=== PATIENT | female | born 1995 | race African-American/Black ===

== ENCOUNTER 2017-12-30 20:09 | Emergency (ER) | payer MEDICAID, SELFPAY ==
[2017-12-30 20:10] VITALS: BP 153/92; PULSE 117; RESP 16; TEMP 38; O2SAT 98; BMI 37.1
[2017-12-30 21:06] VITALS: RESP 24; O2SAT 100
[2017-12-30] MEDS: DiphenhydrAMINE 25 MG Capsule 50 MG PO (22:00)
[2017-12-30 22:50] LABS: Amphetamine Urine VISTA NEGATIVE (<1000 ng/mL); Barbiturate Urine VISTA NEGATIVE (< 200 ng/mL); Benzodiazepine Urine VISTA NEGATIVE (< 200 ng/mL); Cocaine Urine VISTA NEGATIVE (< 300 ng/mL); Ecstacy Urine VISTA NEGATIVE (< 500 ng/mL); Methadone Urine VISTA NEGATIVE (< 300 ng/mL); PCP Urine VISTA NEGATIVE (< 25 ng/mL); THC Urine VISTA POSITIVE (< 50 ng/mL); Vista UDS pH Range 5
--- NOTE | 2017-12-30 23:19 | ED.VISSUMM ---
- ER Visit Summary Date of Service: 12/30/17 Chief Complaint: I think I am going to History of Present Illness: The patient is a [address] Aragon. She reports that she rarely smokes marijuana. Her last use was approximately 2 months ago. She smoked a joint with friends mahad and took 5-6 hits. She reports approximately 30 minutes later she began feeling like she is on fire. She is concerned that this was laced with something. Physical Examination: Vitals: Stable. Afebrile. General: Well-nourished and well-developed. Head: Normocephalic atraumatic. Neck: Supple, no lymphadenopathy. No JVD. Nontender. Cardiovascular: Regular rate and rhythm. No murmurs. Respiratory: No respiratory distress. Clear to auscultation bilaterally. Abdominal: Soft, nontender, nondistended, normal bowel sounds. No guarding, rebound, or peritoneal signs. Back: Nontender. Extremities: Nontender, no edema. Skin: Normal color, no rash. Neurologic: Alert and oriented ?3. Cranial nerves II through XII are intact. Normal strength and sensation. Psych: Normal affect. Test Results: Tox screen only shows marijuana. Emergency Department Course and Treatment: Patient was treated with Benadryl p.o. and is resting comfortably at this point. Treatment Plan: Patient will be discharged with instructions to refrain from using marijuana. Follow-up with Dr. Aragon in 1-2 days if not improving. Return to the emergency department for any worsening symptoms. Disposition: To home in improved and stable condition. Impression: 1. Marijuana intoxication. This note was generated with [employer] software. It may contain incorrect words, spelling, and punctuation that were not noted in review of the chart prior to signing ED Disposition - Plan for ED Patient: Disposition: Home or Assisted Living Chief Complaint: Subst Abuse Instructions: ED Drug Abuse General Referrals: Justyn Yip MD [Primary Care Provider] - As Needed
[2017-12-30 23:34] VITALS: BP 144/68; PULSE 72; RESP 14; O2SAT 100
== END 2017-12-30 23:35 | disposition home or self-care (01) ==
PROVIDERS: Emergency Provider Emergency Medicine; Family Provider Family Medicine; PCP Family Medicine
DX: F12.929 Cannabis use, unspecified with intoxication, unspecified (principal)
CPT/HCPCS: 80307; 99284

== ENCOUNTER → 2018-11-12 16:33 | Outpatient (CLI) | payer SELFPAY ==
[2018-11-12 17:40] LABS: Basophil# 0.03 X10^3/uL; Basophil% 0.4 % (0-1); Eosinophil# 0.09 X10^3/uL; Eosinophils% 1.1 % (0-5); Hematocrit 32.2 % (37-47); Hemoglobin 9.1 g/dl (12.0-15.0); Lymphocyte % 30.7 % (19-41); Mean Corp Hgb Conc 28.3 g/gl (32-36); Mean Corpuscular Hgb 20.4 pg (27.0-32.0); Mean Platelet Vol. 11.1 fl (6.2-12.0); Monocyte# 0.49 X10^3/uL; Neutrophil # 5.04 X10^3/uL (2.7-7.7); Neutrophil % 61.8 % (47-70); Platelet Count 327 K/mm3 (150-450); RBC Distribution Width CV 16.9 % (11.6-14.6); RBC Distribution Width SD 43.6 fl (35.1-43.9); Red Blood Count 4.47 M/mm3 (4.2-5.4); White Blood Count 8.2 K/mm3 (4.4-11.0)
[2018-11-12 17:42] LABS: Differential Indicated SCAN CRITERIA MET; POSITIVE COUNT NO; POSITIVE DIFFERENTIAL NO; POSITIVE MORPHOLOGY YES
[2018-11-12 17:57] LABS: Iron 20 ug/dL (50-170)
[2018-11-12 18:26] LABS: Anisocytosis 1+; Hypochromasia 2+; Ovalocyte 1+; Platelet Estimate ADEQUATE (ADEQ)
== END ==
LOC: MFPLAB 16:35
PROVIDERS: Family Provider Family Medicine; PCP Family Medicine; Referring Provider Family Medicine; Visit Provider Family Medicine
DX: D53.9 Nutritional anemia, unspecified (principal)
CPT/HCPCS: 36415; 83540; 85025

== ENCOUNTER 2019-03-27 16:41 | Emergency (ER) | payer SELFPAY ==
[2019-03-27 16:43] VITALS: BP 109/55; PULSE 67; RESP 16; TEMP 36.9; O2SAT 97; BMI 39.2
--- NOTE | 2019-03-27 17:42 | ED.VISSUMM ---
- ER Visit Summary Date of Service: 03/27/19 Chief Complaint: [Concern for STD ] History of Present Illness: The patient is a 23 F [presents with a white discharge for 2 days. Patient states that she has had chlamydia before and it was similar. Patient was sexually active recently with somebody and did not use protection and is concerned she may have gotten another STD. Patient denies any vaginal lesions. She denies any dysuria. She denies any burning or itching. She denies any foul odor from the discharge. Denies any fevers or abdominal pain.] Physical Examination: [HEENT-PERRLA, EOMI. Cranial nerves II through XII grossly intact. TMs clear. Mucous membranes moist. No adenopathy. Cardiovascular-regular rate and rhythm without murmur or ectopy Lungs-clear to auscultation, chest wall stable without crepitus or subcu emphysema Abdomen-normoactive bowel sounds, soft, nontender, no rebound or rigidity, no peritoneal signs. Extremities-intact ?4, normal range of motion, normal pulses, atraumatic] Test Results: [Urine was sent for GC and chlamydia. Results will be pending.] Emergency Department Course and Treatment: [Was medicated with Rocephin and Zithromax] Treatment Plan: [Follow-up with Dr. Loly Barkley who is her [employer]TELLIGENCE DEVELOPER to receive her results.] Disposition: [Discharged home stable condition.] Impression: [Vaginitis] This note was generated with [employer] dictation software. It may contain incorrect words, spelling, and punctuation that were not noted in review of the chart prior to signing ED Disposition - Plan for ED Patient: Referrals: Justyn Yip MD [Primary Care Provider] -
--- NOTE | 2019-03-27 17:44 | ED.DEP ---
ED Disposition - Plan for ED Patient: Instructions: CHLAMYDIA, Female Referrals: Justyn Yip MD [Primary Care Provider] - Loly Barkley MD [STAFF PHYSICIAN] - 3-5 Days
[2019-03-27] MEDS: Azithromycin 250 MG Tablet 1000 MG PO (18:51)
[2019-03-27] MEDS: Ceftriaxone 500 MG Vial 250 MG IM (18:51)
[2019-03-27 19:06] VITALS: BP 110/60; PULSE 72; RESP 16; O2SAT 98
--- NOTE | 2019-03-27 19:06 | ED.RN ---
OBSERVED SHOT TIME FOR 20 MIN NO REACTION NOTED BY THIS RN, PT WAS D/C.
[2019-03-27 19:07] VITALS: PULSE 79; RESP 16; O2SAT 98
--- NOTE | 2019-03-27 19:08 | ED.RN ---
no noted reaction
[2019-03-27 19:46] LABS: Chlamydia Trachomatis by PCR Negative (Negative); Neisserai gonorrhoeae by PCR Negative (Negative); Probe Check PASS; Sample Adequacy Control PASS; Specimen Processing Control PASS
== END 2019-03-27 19:09 | disposition home or self-care (01) ==
LOC: ED 17:48
PROVIDERS: Emergency Provider Emergency Medicine; Family Provider Family Medicine; PCP Family Medicine
DX: N76.0 Acute vaginitis (principal); Z86.19 Personal history of other infectious and parasitic diseases
CPT/HCPCS: 87491; 87591; 96372; 99283

== ENCOUNTER → 2019-06-15 08:52 | Outpatient (CLI) | payer SELFPAY ==
[2019-06-15 08:21] VITALS: BMI 39.2
[2019-06-15 09:27] LABS: Absolute Lymphocyte Count 2.22 X10^3/uL (0.83-4.51); Absolute Neutrophil Count 5.9 X10^3/uL (2.0-7.7); Basophil# 0.03 X10^3/uL; Basophil% 0.3 % (0-1); Eosinophil# 0.13 X10^3/uL; Eosinophils% 1.5 % (0-5); Hematocrit 36.1 % (37-47); Hemoglobin 10.6 g/dL (12.0-15.0); Lymphocyte # 2.22 X10^3/ul (4.0); Lymphocyte % 25.2 % (19-41); Mean Corp Hgb Conc 29.4 g/dL (32-36); Mean Corpuscular Hgb 22.8 pg (27.0-32.0); Mean Corpuscular Volume 77.8 fL (81-99); Mean Platelet Vol. 10.6 fl (6.2-12.0); Monocyte# 0.47 X10^3/uL; Monocyte% 5.3 % (0-10); NRBC Flagged by Analyzer 0 % (0-5); Neutrophil # 5.93 X10^3/uL (2.7-7.7); Neutrophil % 67.4 % (47-70); POSITIVE MORPHOLOGY YES; Platelet Count 291 K/mm3 (150-450); RBC Distribution Width CV 17.3 % (11.6-14.6); RBC Distribution Width SD 48.8 fl (35.1-43.9); Red Blood Count 4.64 M/mm3 (4.2-5.4); White Blood Count 8.8 K/mm3 (4.4-11.0)
[2019-06-15 09:30] LABS: Differential Indicated SCAN CRITERIA MET
[2019-06-15 09:51] LABS: Prolactin 11.2 ng/mL; Thyroid Stim Hormone (TSH) 1.15 uIU/mL (0.358-3.74)
== END ==
LOC: PAVLAB 08:53
PROVIDERS: Family Provider Family Medicine; PCP Family Medicine; Referring Provider Obstetrics & Gynecology; Visit Provider Obstetrics & Gynecology
DX: N92.0 Excessive and frequent menstruation with regular cycle (principal); N97.9 Female infertility, unspecified
CPT/HCPCS: 36415; 84146; 84443; 85025

== ENCOUNTER → 2019-06-17 11:29 | Outpatient (CLI) | payer SELFPAY ==
[2019-06-15 08:21] VITALS: BMI 39.2
[2019-06-17 13:06] LABS: Iron 153 ug/dL (50-170); Iron Binding Capacity,Total 423 ug/dL (250-450)
[2019-06-20 16:08] LABS: Hemoglobin Fraction A 98.2 % (96.4-98.8); Hemoglobin Fraction A2 1.8 % (1.8-3.2); Hemoglobin Fraction C 0 % (0.0); Hemoglobin Fraction F 0 % (0.0-2.0); Hemoglobin Fraction S 0 % (0.0); Hemoglobin Solubility,Panel Negative (Negative)
[2019-06-21 16:25] LABS: Transferrin 330 mg/dL (200-370)
== END ==
LOC: PAVLAB 11:31
PROVIDERS: Family Provider Family Medicine; PCP Family Medicine; Referring Provider Obstetrics & Gynecology; Visit Provider Obstetrics & Gynecology
DX: D64.9 Anemia, unspecified (principal)
CPT/HCPCS: 36415; 83021; 83540; 83550; 84466; 85660

== ENCOUNTER → 2019-06-27 08:09 | Outpatient (CLI) | payer SELFPAY ==
[2019-06-15 08:21] VITALS: BMI 39.2
--- NOTE | 2019-06-27 08:11 | US_ITS ---
STUDY: ULTRASOUND OF THE FEMALE PELVIS - COMPLETE REASON FOR EXAM: Female, 24 years old. Menorrhagia LMP: 06/05/2019 TECHNIQUE: Transabdominal and Transvaginal TECHNICAL QUALITY: Adequate. COMPARISON: None. FINDINGS: The uterus is anteverted and is in a midline position. The uterus measures 8.7 x 6.6 x 4.6 cm. Normal uterine cervix. The endometrium measures 9 mm in thickness, and is fluid distended. There is no demonstrated endometrial mass. There is no demonstrated myometrial mass. I.U.D. - The patient does not have an I.U.D. The right ovary is visualized. The right ovary measures 2.9 x 2.2 x 2.7 cm. There is no right ovarian cyst or ovarian mass. There is no visualized right adnexal mass or complex lesion. There is normal arterial and normal venous vascularity. The left ovary is visualized. The left ovary measures 2.7 x 2.5 x 1.5 cm. There is no left ovarian cyst or ovarian mass. There is no visualized left adnexal mass or complex lesion. There is normal arterial and normal venous vascularity. There is no fluid in the cul-de-sac. The pre void volume of the bladder was ml. The post void volume of the bladder was ml. Polycystic ovary disease: No. US/Transvaginal Non- IMPRESSION: Some endometrial fluid. Electronically Signed: Del Rea MD at 16:07 EDT Tel , Service support ,
--- NOTE | 2019-06-27 08:11 | US_ITS ---
STUDY: ULTRASOUND OF THE FEMALE PELVIS - COMPLETE REASON FOR EXAM: Female, 24 years old. Menorrhagia LMP: 06/05/2019 TECHNIQUE: Transabdominal and Transvaginal TECHNICAL QUALITY: Adequate. COMPARISON: None. FINDINGS: The uterus is anteverted and is in a midline position. The uterus measures 8.7 x 6.6 x 4.6 cm. Normal uterine cervix. The endometrium measures 9 mm in thickness, and is fluid distended. There is no demonstrated endometrial mass. There is no demonstrated myometrial mass. I.U.D. - The patient does not have an I.U.D. The right ovary is visualized. The right ovary measures 2.9 x 2.2 x 2.7 cm. There is no right ovarian cyst or ovarian mass. There is no visualized right adnexal mass or complex lesion. There is normal arterial and normal venous vascularity. The left ovary is visualized. The left ovary measures 2.7 x 2.5 x 1.5 cm. There is no left ovarian cyst or ovarian mass. There is no visualized left adnexal mass or complex lesion. There is normal arterial and normal venous vascularity. There is no fluid in the cul-de-sac. The pre void volume of the bladder was ml. The post void volume of the bladder was ml. Polycystic ovary disease: No. US/Pelvic (Non ) IMPRESSION: Some endometrial fluid. Electronically Signed: Del Rea MD at 16:07 EDT Tel , Service support ,
== END ==
PROVIDERS: Family Provider Family Medicine; PCP Family Medicine; Referring Provider Nurse Practitioner Women's Health; Visit Provider Nurse Practitioner Women's Health
DX: N92.0 Excessive and frequent menstruation with regular cycle (principal); N97.9 Female infertility, unspecified
CPT/HCPCS: 76830; 76856

== ENCOUNTER 2022-04-30 20:11 | Emergency (ER) | payer SELFPAY ==
[2022-04-30 20:12] VITALS: BP 141/89; PULSE 84; RESP 14; TEMP 36.2; O2SAT 98
--- NOTE | 2022-04-30 20:34 | ED.VIS.FEGU ---
HPI HPI - Female History of Present Illness Chief Complaint: Female C/O Informant: patient Narrative Narrative: Patient presents secondary to concern for herpes. She states that she was diagnosed with bacterial vaginosis 2 days ago and is currently on Flagyl. She noted some bumps in her perineum that are painful and she is concerned she may have herpes. She has no known history of herpes. [facility] Medical History (Updated 04/30/22 @ 20:[address] Dolores Zhou MD) Bacterial vaginosis Home Medications acyclovir 400 mg tablet 400 mg PO TID #30 tabs 04/30/22 [Rx Last Taken Unknown] metronidazole 500 mg tablet 500 mg PO BID 04/30/22 [History Last Taken Unknown] Allergy/AdvReac Type Severity Reaction Status Date / Time No Known Allergies Allergy Verified 04/30/22 20:12 Surgical History delivery delivered Social History Smoking Status: Never smoker alcohol intake: current details: social substance use type: does not use caffeine: Yes what type of physical activity do you participate in: walking seatbelt use: always do you feel safe at home: Yes additional social history: Single- works at [employer] [facility] [facility] ED Constitutional Constitutional ED: Denies chills or fever(s) Eyes Eyes: Denies change in vision or discharge from eye(s) ENT ENT ED: Denies discharge from eye(s), rhinorrhea or sore throat Cardiovascular Cardiovascular: Denies chest pain or palpitations Respiratory/Chest Respiratory/Chest: Denies cough or dyspnea Gastrointestinal Gastrointestinal: Denies abdominal pain, diarrhea, nausea or vomiting Genitourinary Genitourinary ED: Reports other Details: Perineal lesions ; Denies difficulty urinating or dysuria Musculoskeletal Musculoskeletal: Denies back pain or extremity pain Integumentary Denies Abrasions or rash Neurologic Neurologic: Denies headache(s) or weakness Psychiatric Psychiatric: Denies anxiety or depression Allergic/Immunologic Allergic/Immunologic ED: Denies lip swelling or urticaria EXAM Physical Exam Const Vital Signs: 04/30/22 20:12 Temperature 97.2 F L Temperature Source Temporal Pulse Rate 84 Respiratory Rate 14 Blood Pressure 141/89 H Blood Pressure Mean 106 Pulse Ox 98 Oxygen Delivery Method Room Air Positive well nourished and well developed General Appearance ED: well developed HEENT Reports normocephalic and head/scalp atraumatic Eyes PERRL and EOMs intact bilaterally Neck supple Chest Wall inspection of chest normal and palpation of chest normal Resp normal respiratory effort and clear to auscultation bilaterally Cardio regular rate and regular rhythm GI normal to inspection, nondistended, normoactive bowel sounds Palpation: soft Narrative: 2 small ulcerations at the posterior portion of the perineum. No active blisters noted. Ulcerations were swabbed for testing. Extremity normal to inspection Neuro oriented x3 and no sensory deficits noted Sensorium / Orientation: alert Motor Exam: strength 5/5 throughout Psych mental status grossly normal Skin no rashes or lesions noted MDM [facility] Treatment and Re-Evaluation Narrative: Patient does have 2 small ulcerations noted on exam. I am not convinced that this is secondary to herpes, but will be sent for testing. I will send prescription for acyclovir to the patient's pharmacy. She will receive a call tomorrow with the culture result. If the test is positive she will spanish moss picker the prescription. If her herpes test is negative she does not need to spanish moss picker the prescription. She will be referred to Dr. Allen, on-call for [employer]ODUCTION OPER[employer]. Discharge Plan Triage Chief Complaint: Female C/O ED Provider: Dolores Zhou Dx/Rx/DC Orders Clinical Impression: Skin ulcer of perineum Prescriptions: New acyclovir 400 mg tablet 400 mg PO TID Qty: 30 0RF No Action metronidazole 500 mg tablet 500 mg PO BID Label Comments: Take 1 tablet by mouth twice daily for 7 days. Primary Care Provider: Justyn Yip Referrals: Justyn Yip MD [Primary Care Provider] - Lakeisha Fisher MD [Med Staff - Active Staff] - 1-2 Weeks Activity Restrictions/Additional Instructions: As discussed, there are 2 small ulcerations noted. I am not convinced that this is consistent with herpes. Your culture will be sent and you will be called with the results. If your herpes test is positive you can spanish moss picker the prescription from the pharmacy. If your test is negative you do not need to spanish moss picker the prescription. Disposition Disposition: Home, Self Care
== END 2022-04-30 20:49 | disposition home or self-care (01) ==
PROVIDERS: Emergency Provider Emergency Medicine; PCP Family Medicine; Visit Provider Emergency Medicine
DX: L98.499 Non-pressure chronic ulcer of skin of other sites with unspecified severity (principal)
CPT/HCPCS: 87255; 99282

== ENCOUNTER 2023-09-16 13:54 | Emergency (ER) | payer MEDICAID, SELFPAY ==
[2023-09-16 13:56] VITALS: BP 135/70; PULSE 85; RESP 14; TEMP 36.8; O2SAT 98; BMI 40.3
--- NOTE | 2023-09-16 17:07 | EDS_ITS ---
HPI History of Present Illness Chief Complaint: Lower Extremity Injury Detail of Chief Complaint: Mid left calf pain Informant: patient Onset/Context/Timing Onset: Days Context: Sudden Onset Timing: Continuous Quality of Pain: Dull and Aching Location: Inferior portion of the left gastrocnemius region. Current Severity: Mild Maximum Severity: Severe Worsened by: Palpation and plantar flexion of the foot against resistance Relieved by: Rest Associated Symptoms Associated Symptoms: Negative for Parasthesia, Weakness or Loss of Funtion Narrative Narrative: Patient is a 28-year-old female who is approximately 10 weeks gestation who presents to the emergency room because her mother and boss believe she has a blood clot. She denies chest pain or shortness of breath. She has no history of DVT or PE. She does not have history of trauma to the left leg. There is no family history of blood clots. Tetanus Immunization: 5-10 years Prior similar symptoms: No Recent Illness/Hospitalization: No PFSH PFS Medical History Bacterial vaginosis Home Medications acyclovir 400 mg tablet 400 mg PO TID #30 tabs 04/30/22 [Rx Last Taken Unknown] metronidazole 500 mg tablet 500 mg PO BID 04/30/22 [History Last Taken Unknown] Allergy/AdvReac Type Severity Reaction Status Date / Time No Known Allergies Allergy Verified 09/16/23 13:55 Surgical History delivery delivered Social History Smoking Status: Never smoker alcohol intake: current details: social substance use type: does not use caffeine: Yes what type of physical activity do you participate in: walking seatbelt use: always do you feel safe at home: Yes additional social history: Single- works at [employer] ED Constitutional Constitutional ED: Denies chills, fever(s), subjective, sweats or weight loss Cardiovascular Cardiovascular: Denies chest pain or palpitations Respiratory/Chest Respiratory/Chest: Denies cough, dyspnea or dyspnea on exertion Gastrointestinal Gastrointestinal: Denies nausea or vomiting Integumentary Denies Abrasions or rash Neurologic Neurologic: Denies paresthesias or weakness Hematologic/Lymphatic Hematologic/Lymphatic: Denies easy bleeding or easy bruising EXAM Physical Exam Const Vital Signs: 09/16/23 13:56 Temperature 98.2 F Temperature Source Temporal Pulse Rate 85 Respiratory Rate 14 Blood Pressure 135/70 H Blood Pressure Mean 91 Pulse Ox 98 Oxygen Delivery Method Room Air Positive well nourished and well developed General Appearance ED: well developed and NAD HEENT Reports moist mucous membranes normocephalic and atraumatic Chest Wall inspection of chest normal and palpation of chest normal Resp normal respiratory effort, no retractions and clear to auscultation bilaterally Cardio regular rate, regular rhythm, S1 normal heart sound, S2 normal heart sound and no murmurs Extremity normal to inspection and full ROM Extremity Narrative: There is a small area of tenderness. There may be a small hematoma in the area. There is no palpable cords. There is no leg vein distention. There is no tenderness along the distribution deep venous system. The left lower extremity is not swollen, discolored. There is no asymmetry. Plantarflexion against resistance causes increased pain. There is pain to palpation over the small nodular area. This is superficial. Findings are not consistent with a superficial phlebitis. Neuro oriented x3, CN's II-XII intact bilaterally, moves all extremities and no sensory deficits noted Sensorium / Orientation: alert Motor Exam: strength 5/5 throughout Psych mental status grossly normal Skin no wounds Lesions: no lesions Rashes: no rashes MDM MDM MDM Narrative Medical decision making narrative: Wells score for DVT is -2. Patient's findings are consistent with a musc uloskeletal injury. There is no concern for DVT. Patient was told this. In my opinion there is no need for venous duplex study or laboratory studies i.e. D- dimer. Patient was discharged home with instructions to apply ice and Tylenol since she is in her first trimester Discharge Plan Triage Chief Complaint: Lower Extremity Injury ED Provider: Myles Scott Dx/Rx/DC Orders Clinical Impression: Gastrocnemius strain, left Instructions: ED Muscle Strain, Extremity Prescriptions: No Action metronidazole 500 mg tablet 500 mg PO BID Patient Comments: Take 1 tablet by mouth twice daily for 7 days. acyclovir 400 mg tablet 400 mg PO TID Qty: 30 0RF Primary Care Provider: Justyn Yip Referrals: Justyn Yip MD [Primary Care Provider] - 1 Week if not improving Activity Restrictions/Additional Instructions: 1. Apply ice to the left calf 6-10 times a day 2. Take Tylenol for pain Disposition Disposition: Home, Self Care
== END 2023-09-16 17:32 | disposition home or self-care (01) ==
LOC: ED 17:21
PROVIDERS: Emergency Provider Emergency Medicine; Visit Provider Emergency Medicine
DX: O9A.211 Injury, poisoning and certain other consequences of external causes complicating pregnancy, first trimester (principal); S86.112A Strain of other muscle(s) and tendon(s) of posterior muscle group at lower leg level, left leg, initial encounter; X58.XXXA Exposure to other specified factors, initial encounter; Z3A.10 10 weeks gestation of pregnancy
CPT/HCPCS: 99282

== ENCOUNTER 2024-03-15 23:12 | Outpatient (CLI) | payer MEDICAID, SELFPAY ==
[2024-03-15 23:39] VITALS: PULSE 73; RESP 16; TEMP 36.5; O2SAT 93; O2SAT 97
[2024-03-15 23:40] VITALS: BMI 45.3
[2024-03-15 23:44] VITALS: BP 138/68; PULSE 90
[2024-03-15 23:46] VITALS: PULSE 83; O2SAT 98
[2024-03-15 23:47] VITALS: PULSE 84; O2SAT 86
[2024-03-15 23:51] VITALS: PULSE 85; O2SAT 99
[2024-03-15 23:56] VITALS: PULSE 76; O2SAT 98
[2024-03-16 00:01] VITALS: PULSE 83; O2SAT 97
[2024-03-16 00:06] VITALS: PULSE 83; O2SAT 99
[2024-03-16 00:11] VITALS: PULSE 86; O2SAT 100
[2024-03-16 00:16] VITALS: PULSE 86; O2SAT 99
[2024-03-16 00:21] VITALS: PULSE 82; O2SAT 98
--- NOTE | 2024-03-18 09:24 | OB.TRI.HP_ITS ---
HPI - General General Date of Admission: 03/15/24 Date of Service: 03/15/24 Chief Complaint: decreased FM HPI Narrative MELANIE BLANCA, is a 28 F who presents c/o decreased FM Maternal Data Information Final NAM: 04/12/24 Gestational age: 36 0/7 PFSH PFS Medical History Bacterial vaginosis Home Medications ?Medication ?Instructions ?Recorded ?Last Taken ?Type acyclovir 400 mg tablet 400 mg PO TID #30 tabs 04/30/22 Unknown Rx metronidazole 500 mg tablet 500 mg PO BID 04/30/22 Unknown History ferrous sulfate 325 mg (65 mg 325 mg PO DAILY 03/15/24 Unknown History iron) tablet (FeroSul) vit no.95-ferrous 1 tab PO DAILY 03/15/24 Unknown History fumarate 28 mg-folic acid 800 mcg tablet () Allergy/AdvReac Type Severity Reaction Status Date / Time No Known Allergies Allergy Verified 03/15/24 23:41 Surgical History delivery delivered Social History Smoking Status: Never smoker alcohol intake: current details: social substance use type: does not use caffeine: Yes what type of physical activity do you participate in: walking seatbelt use: always do you feel safe at home: Yes additional social history: Single- works at [employer] [facility] History 1 Elective abortions Hx Para 1 Spontaneous abortions Hx # Term Pregnancies Ectopic pregnancies Hx # Pregnancies Multiple births # of living children Past Pregnancies Del. Date Name GA/Weeks Outcome Route Bth Weight Gen Labor Lgth Anesthesia Del Locatn Provider FOB Unknown Xandrea live - full term Female [facility] Filippo Delivery Date: Last Updated by: Emily Simeon MD NRFHTs NST FHR Rate Baby A Baseline: 120 Variability:: Moderate Accelerations:: 15 x 15 Decelerations:: None NST Reactive:: Yes FHR Category:: Category I Uterine Activity:: no regular ctxs Assessment & Plan (1) Decreased movement affecting management of mother, antepartum: PLAN: NST reactive. F/u as scheduled or prn. (2) 36 weeks gestation of :
== END 2024-03-16 00:34 | disposition home or self-care (01) ==
LOC: WPOUT 23:31 → WP 23:32
PROVIDERS: Visit Provider Advanced Practice Midwife
DX: O36.8130 Decreased fetal movements, third trimester, not applicable or unspecified (principal); Z3A.36 36 weeks gestation of pregnancy
CPT/HCPCS: 59025; 59050; 99221; G0378

== ENCOUNTER 2024-04-07 09:54 | Inpatient (IN) | payer MEDICAID, SELFPAY ==
[2024-04-07] VITALS (14 sets, daily range): BP systolic 122–156; BP diastolic 68–95; PULSE 68–92; RESP 16–18; TEMP 36.1–36.9; O2SAT 94–99; BMI 47.8
[2024-04-07] MEDS: Lactated Ringers 1,000 ML 999 ML IV (10:30)
[2024-04-07 10:51] LABS: Absolute Lymphocyte Count 1.22 X10^3/uL (0.83-4.51); Absolute Neutrophil Count 6.5 X10^3/uL (2.0-7.7); Basophil# 0.01 X10^3/uL; Basophil% 0.1 % (0-1); Eosinophil# 0.06 X10^3/uL; Eosinophils% 0.7 % (0-5); Hematocrit 34.2 % (37-47); Hemoglobin 10.9 g/dL (12.0-15.0); Lymphocyte # 1.22 X10^3/ul (0.83-4.51); Lymphocyte % 14.5 % (19-41); Mean Corp Hgb Conc 31.9 g/dL (32-36); Mean Corpuscular Hgb 25.8 pg (27.0-32.0); Mean Corpuscular Volume 80.9 fL (81-99); Mean Platelet Vol. 12.7 fl (6.2-12.0); Monocyte# 0.58 X10^3/uL; Monocyte% 6.9 % (0-10); NRBC Flagged by Analyzer 0 % (0-5); Neutrophil # 6.49 X10^3/uL (2.7-7.7); Neutrophil % 77.2 % (47-70); Platelet Count 138 K/mm3 (150-450); RBC Distribution Width SD 52.8 fl (35.1-43.9); Red Blood Count 4.23 M/mm3 (4.2-5.4); White Blood Count 8.4 K/mm3 (4.4-11.0)
[2024-04-07] MEDS: Acetaminophen 500 MG Tablet 1000 MG PO ×2 (10:57→19:51)
[2024-04-07 11:29] LABS: Syphilis Antibodies Non-reactive
[2024-04-07] MEDS: Lactated Ringers 1,000 ML 150 ML IV (11:34)
[2024-04-07] MEDS: Sodium Citrate/Citric Acid 30 ML UDC PO (11:35)
--- NOTE | 2024-04-07 11:50 | PCM.HP.BLA ---
History and Physical Date of Admission: 04/07/24 PROBLEM: repeat section DIAGNOSIS: repeat section PAST SURGICAL HISTORY: PAST SURGICAL HISTORY PAST SURGICAL HISTORY Procedure Laterality Date ? DELIVERY ONLY 03/24/16 , low transverse PAST MEDICAL HISTORY: PAST MEDICAL HISTORY PAST MEDICAL HISTORY Diagnosis Date ? Antepartum anemia complicating in second trimester 01/04/2016 ? Asthma last used inhaler 2016 ? Chlamydia 2018 ? Group B Streptococcus urinary tract infection affecting , antepartum 12/10/2015 ? Herpes, genital 2021 Type 1 ? HSV infection 08/31/2023 ? Trichomonal infection 08/21/2015 ? Trichomoniasis 09/11/2015 Was checked on 12/05/15 and still had infection. Was re-treated. Dolores Vail, January 04, 2016 Retreated today. third time this . Loly Barkley MD ? UTI (urinary tract infection) in , antepartum 09/02/2023 1st trimester Repeat culture done ? Vaginal odor 08/31/2023 Reports odor and discharge. BV/yeast cultures obtained. SUBJECTIVE: doing well SOCIAL HISTORY: SOCIAL HISTORYExpand by Default Social History Tobacco Use ? Smoking status: Never ? Smokeless tobacco: Never Vaping Use ? Vaping Use: Former ? Quit date: 08/11/2023 ? Substances: Nicotine ? Devices: Disposable Substance Use Topics ? Alcohol use: Not Currently Comment: occasional ? Drug use: No Allergies: No Known Allergies Current Outpatient Medications on File Prior to Visit Medication Sig ? acyclovir (ZOVIRAX) 400 mg tablet Take 1 tablet by mouth three times a day. ? ferrous sulfate 325 mg (65 mg iron) tablet Take 1 tablet by mouth every other day. ? VIT [id number] AC ORAL Take by mouth. ? valACYclovir (VALTREX) 1 gram Take 1 tablet by mouth once daily. No current facility-administered medications on file prior to visit. OBJECTIVE: VITALS: BP 110/88 Wt 131.8 kg (290 lb 9.6 oz) LMP 07/07/2023 (Exact Date) BMI 46.90 kg/m? HEENT: Normocephalic, atraumatic, Mucus membranes moist without lesions. NECK: Soft and Supple. No adenopathy , thyromegaly or bruits. SKIN: No lesions. CHEST: No increased respiratory effort. HEART: Regular rate. BACK: Nontender with no CVA tenderness. ABDOMEN: Soft, non-tender, non-distended, no masses, no hepatosplenomegaly. LOWER EXTREMITIES: There was no pitting edema, no palpable cords and no skin changes. ASSESSMENT: pre op PLAN: 1) Discussed r/b/a repeat section. The rationale for the proposed surgery was discussed in addition to risks, benefits, and alternatives. General pre- and post-operative care was reviewed. Questions were answered. After discussion, the patient indicated a desire to proceed with the planned surgery. Chanel Gonzalez, DO Assessment & Plan Assessment/Plan (1) 39 weeks gestation of : (2) Obesity affecting : (3) History of section: (4) Anemia affecting : (5) History of herpes genitalis: (6) History of trichomonal vaginitis: (7) Asthma:
[2024-04-07] MEDS: Cefazolin 2 GM in 0.9% Normal Saline (100mL Bag) 100 ML IV (11:58)
--- NOTE | 2024-04-07 13:22 | PCM.OPRPT ---
Problems Associated Problem List Diagnoses (1) Asthma: (2) History of trichomonal vaginitis: (3) History of herpes genitalis: (4) Anemia affecting : (5) History of section: (6) 39 weeks gestation of : (7) Obesity affecting : Report of Operation Date of Procedure: 04/07/24 Pre-Operative Diagnosis: 39 week gestation, history section, obesity affecting , accelerated growth Surgery/Procedure Performed:: PLTCS via pfannenstiel incision Description of Surgical Findings:: VMI in cephalic presentation with clear fluid. Weight 10+ pounds and apgars 8, 9. Normal appearing uterus and adnexa. Omental adhesions noted to left fundus of uterus. Omental adhesions to peritoneum along patient's left side. Rectus muscles adhered in the midline and adhered to peritoneum. Fascia dense and adhered to rectus muscles. Surgeon: Chanel Gonzalez qualitative field project manager: Arleth MENDOZA Type of Anesthesia: Spinal Special Medications: None Specimen's removed: Placenta Drains: [place] Estimated Blood Loss (mL): 900 Fluids Replaced: 1000 mL Description of Procedure: The patient was taken to the operating room where spinal anesthesia was found to be adequate. She was prepped and draped in the dorsal supine position with leftward tilt. A Pfannenstiel skin incision was made using a scalpel and this was carried down to the underlying layer of fascia. The fascia was incised in midline. The fascial incision was extended laterally using Cleary scissors. The fascia was tented off the rectus and dissected from the rectus muscles in both cephalad and caudad direction using sharp dissection. The rectus muscles were adhered in the midline. The rectus muscles were elevated using Nola clamps and a scalpel was used to incise in the midline to separate the rectus muscles. The remaining rectus muscles were in the midline using blunt dissection. The peritoneum was then elevated using Nola clamps and entered sharply with good visualization of the bladder. The peritoneal incision was extended bluntly with lateral traction. A bladder blade was inserted. A low transverse incision was made on the uterus with a scalpel. The uterine incision was extended with cephalad and caudad traction. Membranes were ruptured for clear fluid upon entry. The head was delivered in a flexed position, followed by the shoulders and body of the infant without any traction, force, or delay. The cord was clamped and cut after slight delay and the vigorous male infant was handed off to the waiting nursery staff. Placenta was removed with manual extraction. The uterus was cleared cleared of all clot and debris. The uterus was exteriorized. The hysterotomy was closed with 1-0 Vicryl in a running locked fashion. Several additional [id number]-[id number] sutures were placed for hemostasis. An omental adhesion was noted to the left fundus of the uterus. A Nola clamp was placed and the Bovie cautery was used to transect the omental adhesion. A 3-0 Vicryl was used to tie off the omental adhesion once removed from the fundus of the uterus. The Nola clamp was removed and hemostasis was noted. Bilateral adnexa were normal-appearing. The uterus was placed back into the abdomen. Gutters were cleared of all clot. The hysterotomy was inspected and noted to be hemostatic. Kasia was placed over the hysterotomy. The peritoneum was unable to be reapproximated due to omental adhesions to the peritoneum, and the peritoneum was unable to be brought together without it tearing. A bleeding vessel was noted along the rectus muscles on the left side near the fascia. This was made hemostatic using a igbygt-us-fuovi stitch with 3-0 Vicryl. The subfascial space was noted to be hemostatic. The fascia was closed with STRATAFIX in a running fashion. The subcu space was irrigated and made hemostatic with the Bovie cautery. The subcutaneous space was reapproximated with 3-0 Vicryl. The skin was closed with 4-0 Monocryl. A silver dressing was placed. Instrument, sharp, sponge counts were correct and the patient was taken to the recovery room in stable condition. Myranda registered nurse and assisted for the entire case including draping the patient, delivery of the , and closure. Grafts/Implants Used: None Procedure Start Time: 12:23 Complications None Admit VTE Documentation VTE Present on Admission: No VTE Mechan Device Prophylaxis: SCD's
[2024-04-07] MEDS: Oxytocin 15 Units/NS 250ml 15 UNITS/250 ML IV.SOLN 83 UNITS IV (13:50)
[2024-04-07] MEDS: Ketorolac 30 MG/ML Syringe IV ×2 (14:11→20:45)
[2024-04-07] MEDS: HYDROmorphone 1 MG/ML Syringe IV ×2 (14:11→17:30)
[2024-04-07] MEDS: 0.9% Saline Lock 10 ML Syringe IV (14:11)
[2024-04-07] MEDS: Methylergonovine 0.2 MG/ML Ampul IM (15:32)
[2024-04-07] MEDS: Lactated Ringers 1,000 ML 100 ML IV (17:16)
[2024-04-07 20:33] LABS: Hematocrit 34.2 % (37-47); Hemoglobin 10.9 g/dL (12.0-15.0); Mean Corp Hgb Conc 31.9 g/dL (32-36); Mean Corpuscular Volume 81.4 fL (81-99); Mean Platelet Vol. 13.3 fl (6.2-12.0); Platelet Count 133 K/mm3 (150-450); RBC Distribution Width CV 17.8 % (11.6-14.6); RBC Distribution Width SD 52.1 fl (35.1-43.9); White Blood Count 12.4 K/mm3 (4.4-11.0)
[2024-04-08 00:25] VITALS: BP 138/87; PULSE 81; RESP 16; TEMP 36.8; O2SAT 97
[2024-04-08] MEDS: Enoxaparin 40 MG/0.4 ML Syringe SC ×2 (02:16→16:19)
[2024-04-08] MEDS: Acetaminophen 500 MG Tablet 1000 MG PO ×4 (02:17→22:18)
[2024-04-08] MEDS: Ketorolac 30 MG/ML Syringe IV ×2 (02:17→08:12)
[2024-04-08] MEDS: 0.9% Saline Lock 10 ML Syringe IV (02:17)
[2024-04-08 04:50] VITALS: BP 149/100; PULSE 90; RESP 16; TEMP 37.2; O2SAT 96
--- NOTE | 2024-04-08 06:14 | NURSING ---
Jose tank charger in room at 0550 to draw CBC. RN unable to obtain CBC, patient refusing further lab draws d/t multiple attempts previously to draw labs.
--- NOTE | 2024-04-08 08:44 | PCM.PN.CNM ---
Subjective Subjective Patient seen at bedside. Eating breakfast tray. Ambulated and voided without difficulty. Denies pain. Denies headache, dizziness, SOB, or CP. Lochia is minimal. Formula feeding infant. Anticipate discharge home tomorrow. Objective Data Objective Data Vital Signs: Vital Signs Temp Pulse Resp BP Pulse Ox O2 Del Method 99.0 F 90 16 149/100 H 96 Room Air 04/08/24 04:50 04/08/24 04:50 04/08/24 04:50 04/08/24 04:50 04/08/24 04:50 04/08/24 04:50 Oxygen Delivery Method Room Air Weight: 296 lb 4.82 oz Body Mass Index (BMI) 47.8 Intake & Output: Intake and Output for Last 24 Hours 04/06/24 04/07/24 04/08/24 23:59 23:59 23:59 Intake Total 1420 / 1420 898.33 / 898.33 Output Total 1965 / 1965 500 / 500 Balance -545 / -545 398.33 / 398.33 Lab / Micro Data 04/07/24 20:05 Labs: Laboratory Results - last 24 hr 04/07/24 10:30: WBC 8.4, RBC 4.23, Hgb 10.9 L, Hct 34.2 L, MCV 80.9 L, MCH 25.8 L, MCHC 31.9 L, RDW Std Deviation 52.8 H, RDW Coeff of Magdy 18.0 H, Plt Count 138 L, MPV 12.7 H, Immature Gran % (Auto) 0.600, Neut % (Auto) 77.2 H, Lymph % (Auto) 14.5 L, Camas % (Auto) 6.9, Eos % (Auto) 0.7, Baso % (Auto) 0.1, Absolute Neuts (auto) 6.5, Absolute Lymphs (auto) 1.22, Nucleated RBC % 0, Syphilis Total Ab Non-reactive, Blood Type O POSITIVE, Antibody Screen NEGATIVE 04/07/24 20:05: WBC 12.4 H, RBC 4.20, Hgb 10.9 L, Hct 34.2 L, MCV 81.4, MCH 26.0 L, MCHC 31.9 L, RDW Std Deviation 52.1 H, RDW Coeff of Magdy 17.8 H, Plt Count 133 L, MPV 13.3 H ROS Eyes Eyes: Denies blurry vision, change in vision or spots in vision ENT HEENT: Denies dizziness or headache(s) Cardiovascular Cardiovascular: Denies abdominal pain, chest pain or dyspnea Respiratory/Chest Respiratory/Chest: Denies cough, dyspnea, shortness of breath at rest or shortness of breath with exertion Gastrointestinal Gastrointestinal: Denies abdominal pain, diarrhea or vomiting Genitourinary Genitourinary: Denies change in urinary stream, difficulty urinating or dysuria Musculoskeletal Musculoskeletal: Reports none Integumentary Integumentary: Denies rash Neurologic Neurologic: Denies dizziness, headache(s), memory loss or weakness Physical Exam Narrative Dressing is dry and intact Const alert and no apparent distress General Appearance: cooperative and comfortable Exam Limitations: no limitations HEENT normocephalic Eyes General Eye: normal appearance of both eyes Neck full ROM General: normal visual inspection Chest Chest: symmetrical chest wall rise Resp normal respiratory effort and normal air movement Effort and Inspection: symmetric chest movement Auscultation: clear to auscultation bilaterally Cardio regular rate and regular rhythm GI normal to inspection, nondistended, normoactive bowel sounds Back/Spine normal ROM Extremity full ROM and no calf tenderness General Extremity: normal exam except as noted Skin no rashes or lesions noted Neuro CN's II-XII intact bilaterally Psych mental status grossly normal Assessment & Plan (1) Obesity affecting : (2) History of section: (3) Anemia affecting : PLAN: Plan POD 1 Repeat C/S Pain control Increase ambulation today Formula feeding infant Anticipate discharge home tomorrow
[2024-04-08 08:53] VITALS: BP 144/98; PULSE 91; RESP 16; TEMP 36.4
[2024-04-08 09:14] LABS: Hematocrit 29.5 % (37-47); Hemoglobin 9.5 g/dL (12.0-15.0); Mean Corp Hgb Conc 32.2 g/dL (32-36); Mean Corpuscular Hgb 26.2 pg (27.0-32.0); Mean Corpuscular Volume 81.5 fL (81-99); Mean Platelet Vol. 12.6 fl (6.2-12.0); Platelet Count 129 K/mm3 (150-450); RBC Distribution Width CV 17.9 % (11.6-14.6); RBC Distribution Width SD 53.1 fl (35.1-43.9); Red Blood Count 3.62 M/mm3 (4.2-5.4); White Blood Count 10.4 K/mm3 (4.4-11.0)
[2024-04-08 09:18] VITALS: BP 124/59
[2024-04-08 09:30] LABS: AST(SGOT) 59 U/L (15-37); Alanine Aminotransfer ALT/SGPT 24 U/L (13-56); Creatinine, Serum 0.51 mg/dL (0.55-1.02); EST Glomerular Filtration Rate 153 mL/min (>60); Est Glom Filt Rate - Afr Amer 185 mL/min (>60); Estimated Creatinine Clearance 233.69 ml/min; Uric Acid 4.7 mg/dL (2.6-6.0)
[2024-04-08] MEDS: Senna/Docusate Sodium 1 Tablet PO (10:11)
[2024-04-08 13:00] VITALS: BP 128/75; PULSE 95; RESP 16; TEMP 35.9
[2024-04-08] MEDS: Ibuprofen 600 MG Tablet PO (19:54)
[2024-04-08 20:13] VITALS: BP 143/85; PULSE 89; RESP 17; TEMP 36.6; O2SAT 97
--- NOTE | 2024-04-08 21:22 | NURSING ---
RN notes pt tearful this evening due to argument with FOB. FOB and FOBs mother removed from support person list. Emotional support offered.
[2024-04-09 01:29] VITALS: BP 126/68; PULSE 81; RESP 17; TEMP 36.4; O2SAT 97
[2024-04-09] MEDS: Ibuprofen 600 MG Tablet PO ×2 (01:32→07:50)
[2024-04-09] MEDS: Acetaminophen 500 MG Tablet 1000 MG PO ×2 (03:34→10:21)
[2024-04-09] MEDS: Enoxaparin 40 MG/0.4 ML Syringe SC (03:34)
[2024-04-09 07:50] VITALS: BP 117/70; PULSE 72; RESP 16; TEMP 36.4; O2SAT 98
--- NOTE | 2024-04-09 10:10 | PCM.DC.SUM ---
Providers Date of Admission: 04/07/24 Primary Care Physician: Bren Primary Care Phys Reason For Visit: REPEAT C SECTION Diagnosis Discharge Diagnosis (1) Obesity affecting : Status: Acute Code(s): O99.210 - Obesity complicating , unspecified trimester (2) History of section: Status: Acute Code(s): Z98.891 - History of uterine scar from previous surgery (3) Anemia affecting : Status: Acute Code(s): O99.019 - Anemia complicating , unspecified trimester Plan POD Repeat C/S Pain control BP normal after changing cuff to appropriate size Continue oral iron daily Formula feeding infant Follow up this week in office for BP/incision check Medications at Discharge Home Medications ferrous sulfate 325 mg (65 mg iron) tablet (FeroSul) 325 mg PO DAILY anemia 03/15/24 vit no.95-ferrous fumarate 28 mg-folic acid 800 mcg tablet () 1 tab PO DAILY 03/15/24 acetaminophen 500 mg tablet 1,000 mg (2 x 500 mg) PO Q6H #0 tabs 04/09/24 ibuprofen 600 mg tablet 600 mg PO Q6H #0 tabs 04/09/24 Hospital Course Operations section Procedures None Summary of Care Provided Minutes Spent on Discharge: 15 Hospital Course: Patient had repeat section. Hospital course was uneventful Physical Exam Narrative Patient seen at bedside. Ambulating and voiding without difficulty. Passing flatus and had BM this morning. Pain is controlled with PO medications. Denies headache, vision changes, SOB, CP, or RUQ pain. Desires discharge home today. Const alert and no apparent distress General Appearance: cooperative and comfortable Exam Limitations: no limitations HEENT normocephalic Eyes General Eye: normal appearance of both eyes Neck full ROM General: normal visual inspection Chest Chest: symmetrical chest wall rise Resp normal respiratory effort and normal air movement Effort and Inspection: symmetric chest movement Auscultation: clear to auscultation bilaterally Cardio regular rate and regular rhythm GI normal to inspection, nondistended, normoactive bowel sounds Back/Spine normal ROM Extremity full ROM and no calf tenderness General Extremity: normal exam except as noted Skin no rashes or lesions noted Neuro CN's II-XII intact bilaterally Psych mental status grossly normal Weight / BMI Weight Weight: 296 lb 4.82 oz Body Mass Index (BMI) 47.8 ABG / Lab / Microbiology Data 04/08/24 09:05 04/08/24 09:05 D/C Instructions Discharge Diet: No restrictions May resume sexual activity in: 6-8 weeks Weight Bearing Status: Weight bearing as tolerated Lifting Restrictions: 20 lbs Call your doctor if your incision/area has: Continuous Slow Oozing, Increased Pain/ Swelling, Increased Redness, Foul Smelling Discharge and Swelling at the incision site Call your doctor if you observe: Fever of 101 or Higher, Inability to urinate, Using more than 1 pad per hour, Shortness of breath, Chest pain, Calf discomfort and Uncontrolled pain Remove Dressing in: 5 days Cleanse incision/area with: Soap & Water and Keep Dressing Clean & Dry When: 1 week in office for incision and BP check 6 weeks Meaningful Use Info Meaningful Use Meaningful Use Diagnoses (Choose all that apply): None applicable Ischemic Stroke Statin Dosing Therapy Reference: STATIN DOSE THERAPY REFERENCE: * Patients > 75 years receive moderate or high dose statin therapy. * Patients 75 years or YOUNGER should receive HIGH intensity statin dose unless contraindicated. You will be required to document reason for non-treatment if statin daily dose does not meet guidelines. HIGH DOSE STATIN THERAPY DAILY Atorvastatin > than or = to 40 mg Rosuvastatin > than or = to 20 mg Amlodipine + Atorvastatin > than or = to 2.5/40 mg Ezetimibe + Simvastatin 10/80 mg Simvastatin 80mg Discharge Plan Admission Admit Date/Time: 04/07/24 09:54 Primary Reason for Your Visit: Labor and Delivery Attending Provider: Chanel Gonzalez Primary Care Provider: Care Physician,No Primary Discharge Orders/Prescriptions Prescriptions: New acetaminophen 500 mg Tablet 1,000 mg PO Q6H Qty: 0 0RF ibuprofen 600 mg Tablet 600 mg PO Q6H Qty: 0 0RF Continued ferrous sulfate [FeroSul] 325 mg (65 mg iron) tablet 325 mg PO DAILY Discontinued acyclovir 400 mg tablet 400 mg PO TID Qty: 30 0RF No Action PNV cmb#95-ferrous fumarate-FA [] 28 mg iron- 800 mcg tablet 1 tab PO DAILY Referrals / Follow Up: Care Physician,No Primary [Primary Care Provider] - Disposition Disposition (needs filled in before D/C Order can be placed): Home, Self Care
[2024-04-09] MEDS: Senna/Docusate Sodium 1 Tablet PO (10:21)
[2024-04-09 11:35] VITALS: BP 137/64; PULSE 77; RESP 16; TEMP 36.7; O2SAT 98
--- NOTE | 2024-04-09 13:25 | CASEMGMT ---
Social Work: Social Work Assessment Labor and Delivery Unit Patient Address: [address] [place], [place] [address]ca [facility] [address] Phone number: Date of Referral: 04/09/24 Time of Referral: 08:49 Referred By: Chanel Gonzalez Date of Intervention: 04/09/24? Time of Intervention: 13:25 Reason for Referral: Limited support, resources and personal life issues. ? History obtained from: medical records and mother of baby (MOB)? Household composition:? Living in the home will be MOB, her 8 year old daughter Denisse, baby (son Danial) and MGM. Patient's parent/guardian status:? ?MOB and father of baby FOB (Parviz) are not currently in a relationship and MOB is uncertain if FOB will be involved and if so, to what extent. At one point, VANI stated FOFalguni isn?t interested in visitation. MOB reported she and FOB have been ?off and on? for roughly 5 years and don?t live together. MOB described FOB of doing the ?bare minimum? and although FOB was present during the of baby and through 04/08, MOB reported when FOB went to leave the hospital, she asked him not to come back. VANI stated she has been suffering from insomnia for the last few months, had just had a and she was having to tell FOB what to do to be helpful and just got tired with all the people coming in and out. Medical History: ?VANI has had 2 pregnancies and 2 deliveries. Baby?s weight: 10lb, 9oz. Apgars: 8 and 9. Educational Status:? VANI denied any concerns with reading or writing and is a High School graduate. Financial Status: MOB reported that she will be able to meet the basic needs of baby. VANI is currently unemployed however stated she is going to seek employment after she recovers from the . Supplies: VANI reported that she has all of the needed supplies for baby including but not limited to: car seat, crib, diapers, bottles, formula and clothing. Childcare/Caregiver(s):? MOB reported she?s going to stay at home for now and provide direct care for the baby as she?s currently unemployed. MGM will also assist with childcare as needed. Transportation:? 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 Programs/Agencies Involved: ?VANI is currently connected with [facility]IC.? MOB also reported she just recently got involved with [facility] and see?s Renay for counseling.? VANI doesn?t have re-occurring appointments set up at this time. Children Services/Legal Issues:? Denied? Behavioral Health Issues: ??Mental Health History: Previous PPD with daughter where MOB reported she felt ?lost? because it was her first baby and in general stressed and overwhelmed. MOB stated at the time she felt ?detachment? from her first child. MOB reported she just used to ?cry a lot?. Substance Use History: MOB reported previous alcohol abuse and reported she got a DUI in 2021. MOB stated she used to drink ?a lot? on either one of the weekend nights or both however wouldn?t state how many drinks she would have at any given time. MOB reported she now drinks occasionally and will either have 1-2 beers or a beer and a shot. MOB reported she vapes and stated she would like to quit and ?hit it? a few times during her . MOB reported vaping during times of stress. ??Family History:? Denied??? Drug Screens: ?No current. Family/Social Stressors:? Current limited support from ANY and strained/conflictual relationship with FOFalguni.? Limited financial resources/unemployment. Support Systems: VANI identified her primary support as her mother, her cousins and her best friend Sandy. Depression/Shaken Baby/Safe Sleeping: general farmworker provided verbal and written education in regards to PPD, Shaken Baby and Safe Sleeping, all of which MOB verbalized she understood. ?? ASSESSMENT:? MOB consented to visit with social contact worker. Upon entry, VANI was laying in the hospital bed and had baby wrapped in a blanket and in his car seat, also in the bed. VANI?s daughter and mother were also present. MOB granted consent to assessment with others in the room. MOB was engaged and answered questions throughout the assessment however appeared to be very sleepy/tired. MOB presented with a flat and blunted affect. VANI?s 8 year old daughter played on her tablet throughout the visit so observations of interactions between her and MOB was minimal. At the end of the visit, social contact worker asked the MGKiesha and Denisse to leave the room which they were all agreeable to. general farmworker asked again about drug use/substance abuse which MOB denied. MOB also denied any previous or current issues of domestic violence with FOB. MOB denied any safety concerns. Safe Plan of Care for related to substance use: Not needed. MOB denied any current concerns. ? PLAN:?Baby to discharge home with MOB. No additional concerns identified at this time. Dolores Bhandari, MS SQL SERVER DEVELOPER, REAL ESTATE AGENT/BROKER
== END 2024-04-09 13:35 | disposition home or self-care (01) | DRG 540 ==
PROVIDERS: Advanced Practice Midwife; Admitting Provider Obstetrics & Gynecology; Referring Provider Obstetrics & Gynecology; Visit Provider Obstetrics & Gynecology
PROC: 10D00Z1 Extraction of Products of Conception, Low, Open Approach (ICD-10-PCS; CPT 59514; principal; 2024-04-07 11:45)
DX: O34.211 Maternal care for low transverse scar from previous cesarean delivery (principal); O99.214 Obesity complicating childbirth; N73.6 Female pelvic peritoneal adhesions (postinfective); O99.892 Other specified diseases and conditions complicating childbirth; O36.63X0 Maternal care for excessive fetal growth, third trimester, not applicable or unspecified; O99.02 Anemia complicating childbirth; Z37.0 Single live birth; Z3A.39 39 weeks gestation of pregnancy; Z87.59 Personal history of other complications of pregnancy, childbirth and the puerperium
CPT/HCPCS: 59050; 82565; 84450; 84460; 84550; 85025; 85027; 86780; 86850; 86900; 86901; 99221; J7120; A4216; G0378; J2405

== ENCOUNTER 2024-12-19 10:04 | Emergency (ER) | payer MEDICAID, SELFPAY ==
[2024-12-19 10:04] VITALS: BP 142/67; PULSE 68; RESP 16; TEMP 36.1; O2SAT 99; BMI 42.9
--- NOTE | 2024-12-19 10:19 | EKG12_ITS ---
Test Reason : Blood Pressure : */* mmHG Vent. Rate : 66 BPM Atrial Rate : 66 BPM P-R Int : 154 ms QRS Dur : 84 ms QT Int : 402 ms P-R-T Axes : 38 68 22 degrees QTcB Int : 421 ms Normal sinus rhythm with sinus arrhythmia Low voltage QRS Borderline ECG Confirmed by QUETA PIÑA, SHIRA ([id number]), copy editor TOM CARTAGENA ([id number]) on 12/20/2024 8:37:11 AM Referred By: Confirmed By: SHIRA BIRCH MD
--- NOTE | 2024-12-19 10:19 | CT_ITS ---
PROCEDURE: BRAIN/HEAD WITHOUT CONTRAST 12/19/2024 REASON FOR EXAM: HEADACHES, TRANSIENT LUE NUMB TECHNIQUE: Head CT without intravenous contrast. Coronal and Sagittal reconstruction series were provided. One or more dose reduction techniques were used (e.g., Automated exposure control, adjustment of the mA and/or kV according to patient size, use of iterative reconstruction technique. RADIATION DOSE SUMMARY: CTDlvol: 44.99 mGy DLP: 779.24 mGycm COMPARISON: None FINDINGS: Brain: Within normal limits for age CSF Spaces: Normal Sinuses/Mastoids: Clear at visualized levels Bones: Unremarkable CT/Brain/Head without Contrast IMPRESSION: NORMAL NONCONTRAST HEAD CT. [facility]
--- NOTE | 2024-12-19 10:20 | ED.VIS.CHEST ---
HPI History of Present Illness Chief Complaint: Chest Other Informant: patient Narrative Narrative: Patient says for the last week or more she has been having intermittent tightness in her chest that is nonpleuritic, mostly in the middle sometimes to the left side behind her left breast but no other radiation or associated symptoms, when she lies down to rest sometimes it gets better. It is not exertional. She has also had some associated symptoms in the morning when she is at school/college/class often, that feels like bifrontal head pressure and she states it feels like her eyes are straining. She denies pain in her eyes or head, she denies any focal neurologic symptoms with any of this, but states separate from this a week ago, she had some numbness/heaviness sensation in her left arm that went away and has not returned since then. She denies any obvious weakness like she was dropping things and denies any problems walking. No problems talking or understanding others. No recent head injuries. No fevers, chills, cough, dyspnea, GI symptoms, or other issues. She states that there is some association with regards to the head pressure and eyestrain symptoms of being in class, she wears eyeglasses, she feels like her prescription is current, she is not struggling to see distance or close-up, but the symptoms last longer than she would expect if it was just related to eyestrain and being in class. She states often times in class they are in the dark and then they turn the lights on toward the end of class and she is trying to take notes. 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 Genital herpes affecting Bacterial vaginosis Home Medications ?Medication ?Instructions ?Recorded ?Last Taken ?Type ferrous sulfate 325 mg (65 mg 325 mg PO DAILY anemia 03/15/24 04/07/24 05:00 History iron) tablet (FeroSul) 325 mg vit no.95-ferrous 1 tab PO DAILY 03/15/24 04/07/24 05:00 History fumarate 28 mg-folic acid 800 mcg 1 TAB tablet () acetaminophen 500 mg tablet 1,000 mg (2 x 500 mg) PO Q6H #0 04/09/24 Unknown Rx tabs ibuprofen 600 mg tablet 600 mg PO Q6H #0 tabs 04/09/24 Unknown Rx pantoprazole 40 mg tablet,delayed 40 mg PO DAILY #14 tabs 12/19/24 Unknown Rx release Allergy/AdvReac Type Severity Reaction Status Date / Time No Known Allergies Allergy Verified 04/07/24 10:00 Surgical History History of section delivery delivered Social History Smoking Status: Current every day smoker tobacco type: e-cigarettes alcohol intake: current details: social substance use type: does not use caffeine: Yes what type of physical activity do you participate in: walking seatbelt use: always do you feel safe at home: Yes additional social history: Single- works at [employer] ROS ROS ED Constitutional Constitutional ED: Denies chills or fever(s) Eyes Eyes: Denies change in vision or diplopia ENT ENT ED: Denies rhinorrhea or sore throat Cardiovascular Cardiovascular: Reports as per HPI and chest pain; Denies palpitations Respiratory/Chest Respiratory/Chest: Reports as per HPI and chest tightness; Denies cough or dyspnea Gastrointestinal Gastrointestinal: Denies abdominal pain, diarrhea, nausea or vomiting Genitourinary Genitourinary ED: Denies dysuria or hematuria Musculoskeletal Musculoskeletal: Denies back pain or neck pain Integumentary Denies abscess or rash Neurologic Neurologic: Reports headache(s) and paresthesias LUE (Once a week ago, has not recurred and not present now); Denies weakness EXAM Physical Exam Const Vital Signs: 12/19/24 10:04 Temperature 96.9 F L Temperature Source Temporal Pulse Rate 68 Respiratory Rate 16 Blood Pressure 142/67 H Blood Pressure Mean 92 Pulse Ox 99 Oxygen Delivery Method Room Air Positive well nourished and well developed General Appearance ED: well developed and NAD HEENT Reports moist mucous membranes normocephalic and atraumatic Eyes PERRL and EOMs intact bilaterally Neck full ROM and supple Resp normal respiratory effort and clear to auscultation bilaterally Cardio regular rate, regular rhythm and no murmurs GI non-tender and non-distended Auscultation: normoactive bowel sounds Palpation: soft Back/Spine no CVA tenderness General Back: other FROM Extremity normal to inspection General Extremety ED: Negative for edema, pulses abnormal or tenderness General Extremity: Negative for edema or pulses abnormal Neuro oriented x3, CN's II-XII intact bilaterally, no sensory deficits noted and gait normal Sensorium / Orientation: awake and alert Motor Exam: strength 5/5 throughout Psych mental status grossly normal Skin no rashes or lesions noted and no wounds MDM MDM MDM Narrative Medical decision making narrative: Patient states she does not have asthma but there is a history of it in the EMR, which I asked her about. She states she was diagnosed with it as a child but has not had any issues for a long time that she knows of. We tried a GI cocktail, and it really helped her chest discomfort although it is not completely gone. Chest x-ray 2 views are normal in my interpretation and her EKG is normal on my interpretation. Also did a CT of the head given her new symptoms along with a transient left upper extremity numbness; on my interpretation is normal and radiology is in agreement and I agree with their interpretation. I do not think she needs other emergent workup; her PERC score is 0 ruling out PE. At this time I am comfortable letting her go home, advised her to follow-up with her doctor or lodging facilities manager regarding her eyestrain symptoms and headaches, which I think are probably related, and putting her on a 2-week course of pantoprazole to see if that helps she is comfortable with that plan. Radiography Diagnostic Testing: Clinical Impression(s) from Imaging Studies Brain CT 12/19/24 10:19 IMPRESSION: NORMAL NONCONTRAST HEAD CT. Reading Location: [facility]1 Chest X-Ray 12/19/24 10:45 IMPRESSION: NEGATIVE CHEST Reading Location: [facility] Rhythm Strip Rhythm Strip: Sinus Rhythm Rate: 65 Ectopy: None EKG Initial EKG: Attestation: I personally reviewed and interpreted this EKG as follows: Interpretation: Sinus Rhythm and No Acute Injury Pattern Comments: Nml axis & intervals; nml EKG Prior EKG tracings: not available for review Prior: No Prior Discharge Plan Triage Chief Complaint: Chest Other ED Provider: Iban Elliosn Dx/Rx/DC Orders Clinical Impression: Chest pain due to GERD, Bilateral eye strain, Frontal headache, Arm paresthesia, left Instructions: Understanding Headache Pain, ED GERD (Adult) Prescriptions: New pantoprazole 40 mg tablet,delayed release (DR/EC) 40 mg PO DAILY Qty: 14 0RF No Action acetaminophen 500 mg Tablet 1,000 mg PO Q6H Qty: 0 0RF ibuprofen 600 mg Tablet 600 mg PO Q6H Qty: 0 0RF ferrous sulfate [FeroSul] 325 mg (65 mg iron) tablet 325 mg PO DAILY PNV cmb#95-ferrous fumarate-FA [] 28 mg iron- 800 mcg tablet 1 tab PO DAILY Primary Care Provider: Care Physician,No Primary Referrals: Doctor,Your [Non-Staff] - 1 Week if not improving Print Language: Marshallese Disposition Disposition: Home, Self Care
[2024-12-19] MEDS: Lidocaine 2% Viscous15 ML UDC 15 ML PO (10:30)
[2024-12-19] MEDS: Mag Hydrox/Al Hydrox/Simeth 30 ML UDC PO (10:30)
--- NOTE | 2024-12-19 10:45 | RAD_ITS ---
PROCEDURE: CHEST PA AND LATERAL 12/19/2024 REASON FOR EXAM: CHEST PAIN TECHNIQUE: Frontal and lateral views of the chest. COMPARISON: None FINDINGS: Hardware: None Heart: The heart size is normal. Mediastinum: The mediastinal contour is unremarkable. Lungs: The lungs are clear. Bones: The bones are unremarkable. RAD/Chest PA and Lateral IMPRESSION: NEGATIVE CHEST Reading Location: [facility]
[2024-12-19 12:04] VITALS: PULSE 82; RESP 18; O2SAT 98
[2024-12-19] MEDS: Pantoprazole Sodium 40 MG Tablet PO (12:53)
== END 2024-12-19 12:57 | disposition home or self-care (01) ==
PROVIDERS: Emergency Provider Emergency Medicine; Visit Provider Emergency Medicine
DX: R07.9 Chest pain, unspecified (principal); Z97.3 Presence of spectacles and contact lenses; R20.2 Paresthesia of skin; R51.9 Headache, unspecified; K21.9 Gastro-esophageal reflux disease without esophagitis; H53.10 Unspecified subjective visual disturbances; F17.290 Nicotine dependence, other tobacco product, uncomplicated
CPT/HCPCS: 70450; 71046; 93005; 99282